=== PATIENT | female | born 1940 | race Caucasian/White ===

== ENCOUNTER 2023-09-28 13:10 | Outpatient (RCR) | payer MEDICARE, SELFPAY | END 2023-09-28 23:59 | disposition home or self-care (01) | LOC: RPT 13:10 | PROVIDERS: ATTENDING PHYSICIAN Orthopaedic Surgery; FAMILY PHYSICIAN Internal Medicine | DX: M54.51 Vertebrogenic low back pain (principal); Z73.6 Limitation of activities due to disability; G62.9 Polyneuropathy, unspecified; M62.81 Muscle weakness (generalized); M51.37 Other intervertebral disc degeneration, lumbosacral region | CPT/HCPCS: 97010; 97110; 97112; 97162; 97530 ==

== ENCOUNTER → 2023-10-16 09:55 | Outpatient (REF) | payer MEDICARE, SELFPAY | LOC: MRI 3T 09:55 | PROVIDERS: ATTENDING PHYSICIAN Nurse Practitioner; FAMILY PHYSICIAN Internal Medicine | DX: M54.50 Low back pain, unspecified (principal) | CPT/HCPCS: 73721 ==

== ENCOUNTER 2023-10-26 13:06 | Outpatient (RCR) | payer MEDICARE, SELFPAY | END 2023-10-26 23:59 | disposition home or self-care (01) | LOC: RPT 13:06 | PROVIDERS: ATTENDING PHYSICIAN Orthopaedic Surgery; FAMILY PHYSICIAN Internal Medicine | DX: M54.51 Vertebrogenic low back pain (principal); Z73.6 Limitation of activities due to disability; M62.81 Muscle weakness (generalized); G62.9 Polyneuropathy, unspecified; M51.37 Other intervertebral disc degeneration, lumbosacral region; R26.89 Other abnormalities of gait and mobility; G89.29 Other chronic pain | CPT/HCPCS: 97010; 97110; 97112; 97530 ==

== ENCOUNTER → 2023-11-08 14:51 | Outpatient (REF) | payer MEDICARE, SELFPAY | LOC: PAVMRI 14:51 | PROVIDERS: ATTENDING PHYSICIAN Pain Medicine Interventional Pain Medicine; FAMILY PHYSICIAN Internal Medicine; OTHER PHYSICIAN Nurse Practitioner | DX: M54.50 Low back pain, unspecified (principal) | CPT/HCPCS: 72148 ==

== ENCOUNTER → 2023-11-21 10:50 | Outpatient (REF) | payer MEDICARE, SELFPAY ==
[2023-11-21 12:06] LABS: % Basophils 0.8 % (0-2); % Eosinophils 2.8 % (0-6); % Immature Granulocytes 0.7 % (0-0.5); % Lymphocytes 20.9 % (20.5-51.1); % Monocytes 6.4 % (1.7-9.3); % Neutrophils 68.4 % (42.2-75.2); Absolute Basophils 0.1 10^3/uL (0-0.2); Absolute Eosinophils 0.2 10^3/uL (0-0.7); Absolute Immature Granulocytes 0.1 10^3/uL (0-0.05); Absolute Lymphocytes 1.8 10^3/uL (1.2-3.4); Absolute Monocytes 0.6 10^3/uL (0.1-0.6); Absolute Neutrophils 5.9 10^3/uL (1.4-6.5); Hematocrit 38.2 % (37.0-47.0); Hemoglobin 12.4 g/dL (12.0-16.0); Mean Corp Hgb Conc. 32.5 g/dL (33.0-37.0); Mean Corpuscular Hgb 26.4 pg (27.0-31.0); Mean Corpuscular Volume 81.3 fL (81.0-99.0); Mean Platelet Volume 9.6 fL (7.4-10.4); Nucleated Red Blood Cells % 0 %; Platelet Count 305 10^3/uL (130-400); Red Cell Dist. Width 15.9 % (11.5-14.5); White Blood Cell Count 8.6 10^3/uL (4.8-10.8)
[2023-11-21 13:03] LABS: ALT (SGPT) 13 U/L (0-35); AST (SGOT) 19 U/L (14-36); Albumin 3.6 g/dl (3.5-5.0); Alkaline Phosphatase 109 U/L (38-126); Blood Urea Nitrogen 19 mg/dl (7-17); Calcium 9.8 mg/dl (8.4-10.2); Carbon Dioxide 27 mmol/L (22-30); Chloride 101 mmol/L (98-107); Glucose 111 mg/dl (70-99); HDL Cholesterol 41 mg/dl; Potassium 4.1 mmol/L (3.5-5.1); Sodium 134 mmol/L (135-145); Total Bilirubin 0.9 mg/dl (0.2-1.3); Total Cholesterol 198 mg/dl (50-199); Total Protein 6.1 g/dl (6.3-8.2); eGFR > 60.00
[2023-11-21 13:08] LABS: Erythrocyte Sed Rate 30 mm/hour (0-20)
[2023-11-21 13:10] LABS: Triglyceride 454 mg/dl (10-149)
[2023-11-21 13:12] LABS: C-Reactive Protein < 5.00 mg/L (0.0-10.00)
[2023-11-21 13:29] LABS: Vitamin D, 25-OH*** 41.6 ng/mL (30-80)
[2023-11-21 13:41] LABS: LDL Cholesterol, Direct 60 mg/dl
[2023-11-23 07:23] LABS: ANA, IgG Reflex to HEp-2 None Detected (None Detected)
[2023-11-23 10:33] LABS: Rheumatoid Agglutinin Positive (<10 IU)
[2023-11-23 14:11] LABS: Rheumatoid Agg. Semi-quant 512 IU
== END ==
LOC: REG 10:50
PROVIDERS: ATTENDING PHYSICIAN Nurse Practitioner
DX: M54.50 Low back pain, unspecified (principal); M33.13 Other dermatomyositis without myopathy; M70.61 Trochanteric bursitis, right hip; M70.62 Trochanteric bursitis, left hip; R26.89 Other abnormalities of gait and mobility; E55.9 Vitamin D deficiency, unspecified; M19.90 Unspecified osteoarthritis, unspecified site; E78.5 Hyperlipidemia, unspecified; R53.82 Chronic fatigue, unspecified
CPT/HCPCS: 36415; 80053; 80061; 82306; 83721; 85025; 85652; 86038; 86140; 86430; 86431

== ENCOUNTER 2023-11-28 11:00 | Outpatient (RCR) | payer MEDICARE, SELFPAY | END 2023-11-28 23:59 | disposition home or self-care (01) | LOC: RPT 11:00 | PROVIDERS: ATTENDING PHYSICIAN Orthopaedic Surgery; FAMILY PHYSICIAN Internal Medicine | DX: M54.50 Low back pain, unspecified (principal); M54.51 Vertebrogenic low back pain (principal); Z73.6 Limitation of activities due to disability; M62.81 Muscle weakness (generalized); G62.9 Polyneuropathy, unspecified; M51.37 Other intervertebral disc degeneration, lumbosacral region; R26.89 Other abnormalities of gait and mobility; G89.29 Other chronic pain | CPT/HCPCS: 36415; 80053; 80061; 82306; 83721; 85025; 85652; 86038; 86140; 86430; 86431; 97010; 97110; 97140; 97530 ==

== ENCOUNTER → 2023-12-04 12:15 | Outpatient (REF) | payer MEDICARE, SELFPAY | LOC: RCS 12:15 | PROVIDERS: ATTENDING PHYSICIAN Pain Medicine Interventional Pain Medicine; FAMILY PHYSICIAN Internal Medicine | DX: Z01.818 Encounter for other preprocedural examination (principal) | CPT/HCPCS: 93005 ==

== ENCOUNTER 2023-12-28 12:05 | Outpatient (RCR) | payer MEDICARE, SELFPAY | END 2023-12-28 23:59 | disposition home or self-care (01) | LOC: RPT 12:05 | PROVIDERS: ATTENDING PHYSICIAN Orthopaedic Surgery; FAMILY PHYSICIAN Internal Medicine | DX: M54.51 Vertebrogenic low back pain (principal); Z73.6 Limitation of activities due to disability; M62.81 Muscle weakness (generalized); G62.9 Polyneuropathy, unspecified; M51.37 Other intervertebral disc degeneration, lumbosacral region; R26.89 Other abnormalities of gait and mobility; G89.29 Other chronic pain | CPT/HCPCS: 97010; 97110; 97140 ==

== ENCOUNTER 2024-01-12 14:22 | Outpatient (RCR) | payer MEDICARE, SELFPAY | END 2024-01-12 23:59 | disposition home or self-care (01) | LOC: RPT 14:22 | PROVIDERS: ATTENDING PHYSICIAN Orthopaedic Surgery; FAMILY PHYSICIAN Internal Medicine | DX: M54.51 Vertebrogenic low back pain (principal); Z73.6 Limitation of activities due to disability; M62.81 Muscle weakness (generalized); G62.9 Polyneuropathy, unspecified; M51.37 Other intervertebral disc degeneration, lumbosacral region; R26.89 Other abnormalities of gait and mobility; G89.29 Other chronic pain | CPT/HCPCS: 97010; 97110; 97140 ==

== ENCOUNTER 2024-01-16 12:10 | Emergency (ER) | payer MEDICARE, SELFPAY ==
[2024-01-16 12:13] VITALS: BP 118/65
--- NOTE | 2024-01-16 13:20 | ED.GENMED ---
History of Present Illness
General
Chief Complaint: Weakness
Time Seen by Provider: 01/16/24 13:15
Travel History
Have you had any contact with someone who has COVID-19?: No
Do you have any symptoms of coronavirus? Fever > 100 degrees, chills, cough, shortness of breath, sore throat, loss of taste or smell, muscle aches, or headache?: No
History of Present Illness
History of Present Illness:
83 yo female w/ hx of HTN and HLD presents to the Emergency Department for evaluation of generalized weakness and fatigue x 5-6 days. Developed URI symptoms and coughing 1 week ago, tested positive for COVID 19 on a home test yesterday. Has had
minor falls on two occasions this week and remained on the ground for several hours before being found by her daughter. Denies CP/SOB
Past History
Past History
ED Past Medical History: HTN, Hypercholesterolemia, Hypothyroidism and Other (IBS Coliti)
ED Past Surgical History: Appendectomy, Gynecological (hysterectomy), Orthopedic (discectomy) and Tonsilectomy
Social History
Tobacco: Non-smoker
Alcohol: Occasional
Drug: Marijuana
Personal:
Living: alone
Employment: Retired (RN)
Review of Systems
Review of Systems
Allergies reviewed?: Yes
All Other Systems: ROS reviewed and negative except as documented in HPI and ROS
Phy Exam
Physical Exam
Physical Exam:
GEN: Well appearing, NAD, WDWN
Eyes: PERRLA, EOMs intact, no scleral icterus
HENT: NCAT, oral mucosa moist
Lungs: CTAB, no wheezes, rales, rhonchi, normal chest wall excursion
Cardiac: RRR, no M/R/G, no peripheral edema. Radial pulses 2+ bilat
Abdomen: S, NT, ND, NABS, no masses or hepatosplenomegaly
Neuro: AO x 3
MSK: No gross deformity or ecchymosis. No edema. No digital clubbing
Skin: No rashes, petechiae. Normal color, no pallor or jaundice.
Psych: Calm, cooperative, proper hygiene
Course
Orders/Labs/Results
Orders:
Orders
01/16/24 13:28
0.9% Sodium Chloride 1000 ml [Nss] 1,000 ml IV BOLUS
01/16/24 13:29
CR Chest - 2 Views Urgent
Comment:
Reason For Exam: COVID+, weakness
01/16/24 13:34
Electrocardiogram (*1) Urgent
Reason for Study: Fatigue / Weakness
EKG- Treatment ONCE
01/16/24 14:07
Basic Metabolic Panel Urgent
Complete Blood Count/With Diff Urgent
01/16/24 15:32
0.9% Sodium Chloride 500 ml [Nss] 500 ml IV BOLUS
01/16/24 15:38
Urinalysis Reflex To Culture Urgent
Date Specimen was Collected: 01/16/24
Time Specimen was Collected: 15:35
01/16/24 15:50
Comprehensive Metabolic Panel Urgent
Creatine Phosphokinase Urgent
Comment: ADD ON
01/16/24 16:38
Add On- LAB Urgent
Tests Added?: CPK
Abnormal Lab Results
01/16/24 01/16/24
14:07 15:50
RBC 3.90 L 10^6/uL
(4.20-5.40)
Hgb 10.4 L g/dL
(12.0-16.0)
Hct 32.7 L %
(37.0-47.0)
MCH 26.7 L pg
(27.0-31.0)
MCHC 31.8 L g/dL
(33.0-37.0)
RDW 14.6 H %
(11.5-14.5)
Absolute Lymphs (auto) 0.8 L 10^3/uL
(1.2-3.4)
Neutrophils % 75.9 H %
(42.2-75.2)
Lymphocytes % 15.4 L %
(20.5-51.1)
Sodium 133 L mmol/L 132 L mmol/L
(135-145) (135-145)
BUN 28 H mg/dl 25 H mg/dl
(7-17) (7-17)
Glucose 112 H mg/dl 103 H mg/dl
(70-99) (70-99)
Total Protein 5.4 L g/dl
(6.3-8.2)
Albumin 3.0 L g/dl
(3.5-5.0)
01/16/24 14:07
01/16/24 15:50
Vital Signs
Initial and Last Documented VS:
Initial Vital Signs
Temp Pulse Resp BP Pulse Ox
98.8 F 85 20 118/65 95
01/16/24 12:13 01/16/24 12:13 01/16/24 12:13 01/16/24 12:13 01/16/24 12:13
Last Documented Vital Signs
Temp Pulse Resp BP Pulse Ox
98.8 F 72 18 118/65 95
01/16/24 12:13 01/16/24 14:15 01/16/24 15:00 01/16/24 12:13 01/16/24 12:13
MDM/Problems Addressed
MDM/Problems Addressed:
Pt's workup is reassuring. Likely fatigue in the setting of COVID 19. Pt given IV fluids with improvement in symptoms, CPK unremarkable. Discussed supportive care and return parameters
*Critical Care Note
Total Time (30-74mins, 75-104mins- exclusive of procedures): Not Applicable
ED Attending Note
-
Portions of this chart may have been created with voice recognition software.� Occasional wrong word or��sound alike� substitutions may have occurred due to the inherent limitations of voice recognition software.
Discharge Plan
Departure
Patient Disposition: Home (Routine Discharge)
Date of Disposition: 01/16/24
Time of Disposition: 16:39
Patient with high blood pressure during this ER visit?: No
Discharge Problem:
COVID-19, Generalized weakness
Instructions: Generalized Weakness (DC)
Prescriptions:
No Action
amlodipine 5 MG tablet
5 mg PO DAILY
levothyroxine 50 MCG tablet
50 mcg PO DAILY
esomeprazole magnesium [Nexium] 40 MG capsule,delayed release(DR/EC)
40 mg PO DAILY PRN (Reason: reflux)
dicyclomine 10 MG capsule
10 mg PO DAILY PRN (Reason: abd pain)
aspirin 81 MG tablet,delayed release (DR/EC)
81 mg PO DAILY
losartan-hydrochlorothiazide 1 EACH tablet
1 ea PO DAILY
levofloxacin 500 MG tablet
500 mg PO Q24H Qty: 6 0RF
Referrals:
Reg Segovia MD [Family Provider] -
Interventions
Interventions:
*Risk Screen - Suicide Last Done: 01/16/24 12:13
*General Assessment Last Done: 01/16/24 12:13
*Neglect/Abuse Screening Last Done: 01/16/24 12:13
ED- Fall Risk Assessment Last Done: 01/16/24 15:00
*ED COVID-19 Vaccine History Last Done: 01/16/24 15:00
*Nursing Disposition Last Done: 01/16/24 17:20
ED- Cardiac Assessment Last Done: 01/16/24 14:20
ED- Neurological Assessment Last Done: 01/16/24 14:20
ED- Pulmonary Assessment Last Done: 01/16/24 14:20
Discharge Date and Time
Discharge Date/Time: 01/16/24 18:06
Print Language: GIBRALTARIAN
[2024-01-16 13:58] VITALS: BMI 24.2
[2024-01-16] MEDS: NSS 1000 IV (14:06)
[2024-01-16 14:21] LABS: % Basophils 0.4 % (0-2); % Eosinophils 0.2 % (0-6); % Immature Granulocytes 0.4 % (0-0.5); % Lymphocytes 15.4 % (20.5-51.1); % Monocytes 7.7 % (1.7-9.3); % Neutrophils 75.9 % (42.2-75.2); Absolute Lymphocytes 0.8 10^3/uL (1.2-3.4); Absolute Monocytes 0.4 10^3/uL (0.1-0.6); Absolute Neutrophils 3.7 10^3/uL (1.4-6.5); Hematocrit 32.7 % (37.0-47.0); Hemoglobin 10.4 g/dL (12.0-16.0); Mean Corp Hgb Conc. 31.8 g/dL (33.0-37.0); Mean Corpuscular Hgb 26.7 pg (27.0-31.0); Mean Corpuscular Volume 83.8 fL (81.0-99.0); Mean Platelet Volume 9.5 fL (7.4-10.4); Nucleated Red Blood Cells % 0 %; Platelet Count 182 10^3/uL (130-400); Red Cell Dist. Width 14.6 % (11.5-14.5); White Blood Cell Count 4.9 10^3/uL (4.8-10.8)
[2024-01-16 14:48] LABS: Blood Urea Nitrogen 28 mg/dl (7-17); Calcium 8.5 mg/dl (8.4-10.2); Carbon Dioxide 29 mmol/L (22-30); Chloride 99 mmol/L (98-107); Estimated Creatinine Clearance 49 ml/min; Glucose 112 mg/dl (70-99); Sodium 133 mmol/L (135-145); eGFR > 60.00
[2024-01-16] MEDS: NSS 500 IV (15:45)
[2024-01-16 15:49] LABS: Urine Albumin Negative (Neg - Trace); Urine Bilirubin Negative (Negative); Urine Character Clear (Clear); Urine Color Yellow; Urine Glucose Negative (Negative); Urine Ketone Negative (Negative); Urine Leukocyte Negative (Negative); Urine Nitrite Negative (Negative); Urine Occult Blood Negative (Negative); Urine Specific Gravity 1.015 (<1.030); Urine Urobilinogen Negative (Neg - 1+)
[2024-01-16 16:23] LABS: ALT (SGPT) 13 U/L (0-35); AST (SGOT) 31 U/L (14-36); Alkaline Phosphatase 98 U/L (38-126); Blood Urea Nitrogen 25 mg/dl (7-17); Calcium 8.5 mg/dl (8.4-10.2); Carbon Dioxide 26 mmol/L (22-30); Chloride 101 mmol/L (98-107); Estimated Creatinine Clearance 57 ml/min; Glucose 103 mg/dl (70-99); Potassium 3.7 mmol/L (3.5-5.1); Sodium 132 mmol/L (135-145); Total Bilirubin 0.8 mg/dl (0.2-1.3); Total Protein 5.4 g/dl (6.3-8.2); eGFR > 60.00
[2024-01-16 18:45] LABS: Creatine Phosphokinase 92 U/L (30-135)
== END 2024-01-16 18:06 | disposition home or self-care (01) ==
LOC: EMR 12:10
PROVIDERS: Physician Assistant; EMERGENCY PHYSICIAN Emergency Medicine; FAMILY PHYSICIAN Internal Medicine
DX: U07.1 COVID-19 (principal); R53.1 Weakness; I10 Essential (primary) hypertension; E78.00 Pure hypercholesterolemia, unspecified
CPT/HCPCS: 99285; 96360; 71046; 80048; 80053; 81003; 82550; 85025; 93005

== ENCOUNTER 2024-01-31 20:58 | Emergency (ER) | payer MEDICARE, SELFPAY ==
[2024-01-31 21:00] VITALS: BP 204/94
--- NOTE | 2024-01-31 23:06 | ED.GENMED ---
History of Present Illness
General
Chief Complaint: Fall
Source: patient
Exam Limitations: none
Time Seen by Provider: 01/31/24 22:38
Nursing documentation reviewed up to this point in time: agreed with
History of Present Illness
History of Present Illness:
84-year-old female past medical history of hypertension hyperlipidemia, IBS presenting to the emergency department today after ground-level fall where she got tripped up over a log hit her left knee anteriorly has been able to ambulate but has had
worsening swelling discomfort over the past couple hours. Denies any chest pain shortness of breath numbness weakness or additional concern
Past History
Past History
ED Past Medical History: HTN, Hypercholesterolemia, Hypothyroidism and Other (IBS Coliti)
ED Past Surgical History: Appendectomy, Gynecological (hysterectomy), Orthopedic (discectomy) and Tonsilectomy
Social History
Tobacco: Non-smoker
Alcohol: Occasional
Drug: Marijuana
Personal:
Living: alone
Employment: Retired (RN)
Review of Systems
Review of Systems
Allergies reviewed?: Yes
All Other Systems: ROS reviewed and negative except as documented in HPI and ROS
Phy Exam
Physical Exam
Physical Exam:
GENERAL: Alert , in no apparent distress
EYE: pupils equal and reactive
NECK: Supple, no significant adenopathy.
ENT: o/p clr, mmm.
CARDIAC: Regular rate and rhythm .
LUNGS: Clear breath sounds bilaterally, no acute respiratory distress, no wheezes/rales/rhonchi
ABDOMEN: Soft, without focal tenderness, no r/g, no cvat
NEUROLOGICAL: Alert and oriented, no focal neuro deficits
SKIN: Warm and dry, skin intact.
MUSCULOSKELETAL: Swelling and some mild bruising to the anterior left knee mainly overlying the patella and the infrapatellar tendon. No significant pain on the tibial plateau good range of motion of the knee no redness or warmth good range of
motion of the ankle and hip. Can straight leg raise., well perfused.
PSYCH: Normal and appropriate interaction.
Course
Orders/Labs/Results
Orders:
Orders
01/31/24 21:03
Knee, Left 4 or More Views [CR Knee - Left 4 Or More View*] Urgent
Comment:
Reason For Exam: FALL
01/31/24 22:58
Vital Signs- Treatment ONCE
Frequency: Once
Knee Immobilizer Left-Treatmen ONCE
Vital Signs
Initial and Last Documented VS:
Initial Vital Signs
Temp Pulse Resp BP Pulse Ox
98.9 F 80 24 204/94 95
01/31/24 21:00 01/31/24 21:00 01/31/24 21:00 01/31/24 21:00 01/31/24 21:00
Last Documented Vital Signs
Temp Pulse Resp BP Pulse Ox
98.9 F 80 24 204/94 95
01/31/24 21:00 01/31/24 21:00 01/31/24 21:00 01/31/24 21:00 01/31/24 21:00
MDM/Problems Addressed
MDM/Problems Addressed:
84-year-old female presenting to the emergency department with left anterior knee pain after a ground-level fall hitting her left anterior knee here there is some bruising but good range of motion and strength no signs of infection no significant
breaks in the skin x-ray without signs of fracture. Patient with likely soft tissue injury plan for symptomatic outpatient follow-up as needed. Return precautions given.
*Critical Care Note
Total Time (30-74mins, 75-104mins- exclusive of procedures): Not Applicable
ED Attending Note
-
Portions of this chart may have been created with voice recognition software.� Occasional wrong word or��sound alike� substitutions may have occurred due to the inherent limitations of voice recognition software.
Discharge Plan
Departure
Patient Disposition: Home (Routine Discharge)
Date of Disposition: 01/31/24
Time of Disposition: 23:08
Patient with high blood pressure during this ER visit?: Yes
Condition: Good
Covid-19: Not Applicable
Discharge Problem:
Knee sprain
Instructions: Knee Sprain (DC), BLOOD PRESSURE
Prescriptions:
No Action
amlodipine 5 MG tablet
5 mg PO DAILY
levothyroxine 50 MCG tablet
50 mcg PO DAILY
esomeprazole magnesium [Nexium] 40 MG capsule,delayed release(DR/EC)
40 mg PO DAILY PRN (Reason: reflux)
dicyclomine 10 MG capsule
10 mg PO DAILY PRN (Reason: abd pain)
aspirin 81 MG tablet,delayed release (DR/EC)
81 mg PO DAILY
losartan-hydrochlorothiazide 1 EACH tablet
1 ea PO DAILY
levofloxacin 500 MG tablet
500 mg PO Q24H Qty: 6 0RF
Referrals:
Chris Degroot MD [Active] - Follow up in 10 days
Maira Aguirre MD [Family Provider] -
Activity Restrictions/Additional Instructions:
You came to the emergency department today for concerns of left-sided knee discomfort after a fall. X-ray without signs of fracture. Please rest ice compress and elevate and follow-up closely with orthopedics as needed. Return to the emergency
department any worsening, new or concerning symptoms.
Interventions
Interventions:
*Risk Screen - Suicide Last Done: 01/31/24 21:00
*Neglect/Abuse Screening Last Done: 01/31/24 21:00
ED- Fall Risk Assessment Last Done: 01/31/24 22:29
ED-Musculoskeletal Assessment Last Done: 01/31/24 22:29
ED- Neurological Assessment Last Done: 01/31/24 22:29
ED-Skin Assessment Last Done: 01/31/24 22:29
Discharge Date and Time
Print Language: SPANISH
[2024-02-01 00:27] VITALS: BP 113/76
== END 2024-02-01 00:33 | disposition home or self-care (01) ==
LOC: EMR 20:58
PROVIDERS: EMERGENCY PHYSICIAN Emergency Medicine; FAMILY PHYSICIAN Internal Medicine
DX: S83.92XA Sprain of unspecified site of left knee, initial encounter (principal); W18.30XA Fall on same level, unspecified, initial encounter; I10 Essential (primary) hypertension; E78.00 Pure hypercholesterolemia, unspecified; K58.9 Irritable bowel syndrome, unspecified
CPT/HCPCS: 99283; 73564

== ENCOUNTER → 2024-11-14 13:40 | Outpatient (REF) | payer MEDICARE, SELFPAY | LOC: RAD 13:40 | PROVIDERS: ATTENDING PHYSICIAN Internal Medicine | DX: S22.42XD Multiple fractures of ribs, left side, subsequent encounter for fracture with routine healing (principal) | CPT/HCPCS: 71111; 71120 ==

== ENCOUNTER → 2025-01-24 10:47 | Outpatient (REF) | payer MEDICARE, SELFPAY ==
[2025-01-24 11:16] LABS: % Basophils 1.5 % (0-2); % Eosinophils 3.2 % (0-6); % Immature Granulocytes 0.7 % (0-0.5); % Monocytes 6.1 % (1.7-9.3); % Neutrophils 64.5 % (42.2-75.2); Absolute Basophils 0.1 10^3/uL (0-0.2); Absolute Eosinophils 0.2 10^3/uL (0-0.7); Absolute Immature Granulocytes 0.1 10^3/uL (0-0.05); Absolute Lymphocytes 1.8 10^3/uL (1.2-3.4); Absolute Monocytes 0.5 10^3/uL (0.1-0.6); Absolute Neutrophils 4.9 10^3/uL (1.4-6.5); Hematocrit 37.8 % (37.0-47.0); Hemoglobin 12.1 g/dL (12.0-16.0); Mean Corpuscular Hgb 26.1 pg (27.0-31.0); Mean Corpuscular Volume 81.6 fL (81.0-99.0); Mean Platelet Volume 9.2 fL (7.4-10.4); Nucleated Red Blood Cells % 0 %; Platelet Count 306 10^3/uL (130-400); Red Blood Cell Count 4.63 10^6/uL (4.20-5.40); Red Cell Dist. Width 15.4 % (11.5-14.5); White Blood Cell Count 7.5 10^3/uL (4.8-10.8)
[2025-01-24 11:51] LABS: ALT (SGPT) 15 U/L (0-35); AST (SGOT) 19 U/L (14-36); Albumin 3.9 g/dl (3.5-5.0); Alkaline Phosphatase 164 U/L (38-126); Blood Urea Nitrogen 24 mg/dl (7-17); Calcium 9.6 mg/dl (8.4-10.2); Carbon Dioxide 24 mmol/L (22-30); Chloride 106 mmol/L (98-107); Glucose 118 mg/dl (70-99); HDL Cholesterol 40 mg/dl; Potassium 4.5 mmol/L (3.5-5.1); Sodium 137 mmol/L (135-145); Total Cholesterol 278 mg/dl (50-199); Total Protein 6.5 g/dl (6.3-8.2); eGFR > 60.00
[2025-01-24 11:55] LABS: Triglyceride 487 mg/dl (10-149)
[2025-01-24 12:03] LABS: Vitamin D, 25-OH*** 27.5 ng/mL (30-80)
[2025-01-24 12:21] LABS: LDL Cholesterol, Direct 51 mg/dl
== END ==
LOC: REG 10:47
PROVIDERS: ATTENDING PHYSICIAN Internal Medicine
DX: R42 Dizziness and giddiness (principal); E78.5 Hyperlipidemia, unspecified; R53.83 Other fatigue; E55.9 Vitamin D deficiency, unspecified
CPT/HCPCS: 36415; 80053; 80061; 82306; 83721; 84443; 85025

== ENCOUNTER 2025-03-13 17:39 | Observation (INO) | payer MEDICARE, SELFPAY ==
[2025-03-13] VITALS (10 sets, daily range): BP systolic 122–155; BP diastolic 48–76; PULSE 67; O2SAT 96; BMI 28.7; BMI 17.2
--- NOTE | 2025-03-13 11:03 | ED.GENMED ---
History of Present Illness
<Sherice Chase PA-C - Last Filed: 03/13/25 18:42>
General
Chief Complaint: Fall
Source: patient
Exam Limitations: none
Time Seen by Provider: 03/13/25 10:40
Nursing documentation reviewed up to this point in time: agreed with
History of Present Illness
History of Present Illness:
Patient is an 85-year-old female with history hypertension, hyperlipidemia who presents the emergency left hip pain after mechanical fall earlier this morning. Patient states she was walking out of her garage holding a few antique objects when she
lost her footing and fell landing on her left hip. She was lying on the ground proximately 30 minutes prior to her cleaning lady arriving. [facility]. She is unable to weight-bear or
move her hip without significant pain.
She does not believe she hit her head. She denies any neck pain, headache, back pain. No chest pain, abdominal pain, or shortness of breath.
Patient denies any numbness/tingling in left lower extremity. No pain in left knee or left ankle.
Patient is not on any blood thinners.
Past History
<Sherice Chase PA-C - Last Filed: 03/13/25 18:42>
Past History
ED Past Medical History: HTN, Hypercholesterolemia, Hypothyroidism and Other (IBS Coliti)
ED Past Surgical History: Appendectomy, Gynecological (hysterectomy), Orthopedic (discectomy) and Tonsilectomy
Social History
Tobacco: Non-smoker
Alcohol: Occasional
Drug: Marijuana
Personal:
Living: alone
Employment: Retired (RN)
Review of Systems
<Sherice Chase PA-C - Last Filed: 03/13/25 18:42>
Review of Systems
Allergies reviewed?: Yes
All Other Systems: ROS reviewed and negative except as documented in HPI and ROS
Phy Exam
<Sherice Chase PA-C - Last Filed: 03/13/25 18:42>
Physical Exam
Physical Exam:
Vitals: Patient's vital signs are stable. Afebrile
General: Patient is uncomfortable appearing due to pain
Skin: Warm and dry, no rashes or lesions
Head: Normocephalic, atraumatic
Eyes: Sclera nonicteric. Pupils equal round reactive to light bilaterally EOMs intact. No nystagmus.
Throat: Protecting airway
Neck: Normal ROM, no cervical spine tenderness, no meningismus
Cardiac: Regular rate and rhythm, no murmurs. No reproducible chest wall tenderness
Pulm: Normal respiratory effort, no wheezes, rales, rhonchi heard on exam
Abdomen: Abdomen soft and nontender. No ecchymoses
Extremities: Left lower extremity appears somewhat shortened and externally rotated. Focal tenderness over greater trochanter with some pain with internal rotation of left hip. Left lower extremity neurovascularly intact. No pain at left knee.
RLE and bilateral upper extremities atraumatic and nontender with full range of motion
Neuro: AAOx3. Grossly intact.
Psychiatric: Normal affect.
Course
<Sherice Chase PA-C - Last Filed: 03/13/25 18:42>
Orders/Labs/Results
Orders:
Orders
03/13/25 10:53
CT Head W/o Iv Contrast Urgent
Comment:
Reason For Exam: unwitnessed fall
Acetaminophen [Tylenol] 650 mg PO NOW STA
Hip, Left 2-3 Views [CR Hip - LT w/wo Pel 2-3 Vw*] Urgent
Comment:
Reason For Exam: fall, left hip pain
Include a pelvis x-ray?: Yes
03/13/25 11:05
Morphine Sulfate 4 mg IV NOW STA
03/13/25 11:40
Diphenhydramine [Benadryl] 50 mg .ROUTE .STK-MED ONE
03/13/25 11:42
Diphenhydramine [Benadryl] 25 mg IV NOW STA
03/13/25 12:49
CT Pelvis W/o Iv Contrast Urgent
Comment:
Reason For Exam: Fall, left hip pain
03/13/25 14:24
PT Consult [Pt Eval And Treat] Urgent
Activity Level: As Tolerated
03/13/25 15:10
Case Management Consult ONCE
Case Management Consult: Discharge Planning
03/13/25 16:35
Basic Metabolic Panel Urgent
Complete Blood Count/With Diff Urgent
03/13/25 17:23
Admit/Transfer Patient As Directed
Co-Sign Provider:
Level of Care: Observation services
Assign to:: Medical/Surgical
Physician / Group: Jermaine Ruiz
Diagnosis: ambulatory dysfunction, left greater trochanter fracture
PRN Pain Medication Management As Directed
May give lesser potent ordered pain med per pt: Yes
preference::
Protocol:: Medication orders for pain may be administered in a
manner that supports deferring to patient preference
when the pt is:
- Requesting an ordered lesser potent pain medication.
Least to most potent pain medications are defined
as: acetaminophen < NSAID < tramadol < opioids
(morphine, oxycodone, hydromorphone).
- Requesting a lesser dose of the same medication IF
ORDERED.
- Requesting a less intrusive route of administration
if both routes are prescribed by the provider (PO <
IV).
03/13/25 17:24
Code Status As Directed
Resuscitation Status: Full Code
Abnormal Lab Results
03/13/25
16:35
RBC 3.78 L 10^6/uL
(4.20-5.40)
Hgb 9.8 L g/dL
(12.0-16.0)
Hct 30.0 L %
(37.0-47.0)
MCV 79.4 L fL
(81.0-99.0)
MCH 25.9 L pg
(27.0-31.0)
MCHC 32.7 L g/dL
(33.0-37.0)
RDW 15.0 H %
(11.5-14.5)
Abs Immat Gran (auto) 0.1 H 10^3/uL
(0-0.05)
Absolute Neuts (auto) 7.3 H 10^3/uL
(1.4-6.5)
Lymphocytes % 17.0 L %
(20.5-51.1)
Chloride 109 H mmol/L
(98-107)
BUN 21 H mg/dl
(7-17)
Glucose 105 H mg/dl
(70-99)
03/13/25 16:35
03/13/25 16:35
Vital Signs
Initial and Last Documented VS:
Initial Vital Signs
Temp Pulse Resp BP Pulse Ox
98.1 F 75 12 151/76 97
03/13/25 10:44 03/13/25 10:44 03/13/25 10:44 03/13/25 10:44 03/13/25 10:44
Last Documented Vital Signs
Temp Pulse Resp BP Pulse Ox
98.1 F 74 14 129/48 96
03/13/25 10:44 03/13/25 18:15 03/13/25 18:15 03/13/25 18:00 03/13/25 16:30
<Jose Harding, DO - Last Filed: 03/13/25 11:06>
Orders/Labs/Results
Orders:
Orders
03/13/25 10:53
CT Head W/o Iv Contrast Urgent
Comment:
Reason For Exam: unwitnessed fall
Acetaminophen [Tylenol] 650 mg PO NOW STA
Hip, Left 2-3 Views [CR Hip - LT w/wo Pel 2-3 Vw*] Urgent
Comment:
Reason For Exam: fall, left hip pain
Include a pelvis x-ray?: Yes
03/13/25 11:05
Morphine Sulfate 4 mg IV NOW STA
03/13/25 11:40
Diphenhydramine [Benadryl] 50 mg .ROUTE .STK-MED ONE
03/13/25 11:42
Diphenhydramine [Benadryl] 25 mg IV NOW STA
03/13/25 12:49
CT Pelvis W/o Iv Contrast Urgent
Comment:
Reason For Exam: Fall, left hip pain
03/13/25 14:24
PT Consult [Pt Eval And Treat] Urgent
Activity Level: As Tolerated
03/13/25 15:10
Case Management Consult ONCE
Case Management Consult: Discharge Planning
03/13/25 16:35
Basic Metabolic Panel Urgent
Complete Blood Count/With Diff Urgent
03/13/25 17:23
Admit/Transfer Patient As Directed
Co-Sign Provider:
Level of Care: Observation services
Assign to:: Medical/Surgical
Physician / Group: Jermaine Ruiz
Diagnosis: ambulatory dysfunction, left greater trochanter fracture
PRN Pain Medication Management As Directed
May give lesser potent ordered pain med per pt: Yes
preference::
Protocol:: Medication orders for pain may be administered in a
manner that supports deferring to patient preference
when the pt is:
- Requesting an ordered lesser potent pain medication.
Least to most potent pain medications are defined
as: acetaminophen < NSAID < tramadol < opioids
(morphine, oxycodone, hydromorphone).
- Requesting a lesser dose of the same medication IF
ORDERED.
- Requesting a less intrusive route of administration
if both routes are prescribed by the provider (PO <
IV).
03/13/25 17:24
Code Status As Directed
Resuscitation Status: Full Code
Abnormal Lab Results
03/13/25
16:35
RBC 3.78 L 10^6/uL
(4.20-5.40)
Hgb 9.8 L g/dL
(12.0-16.0)
Hct 30.0 L %
(37.0-47.0)
MCV 79.4 L fL
(81.0-99.0)
MCH 25.9 L pg
(27.0-31.0)
MCHC 32.7 L g/dL
(33.0-37.0)
RDW 15.0 H %
(11.5-14.5)
Abs Immat Gran (auto) 0.1 H 10^3/uL
(0-0.05)
Absolute Neuts (auto) 7.3 H 10^3/uL
(1.4-6.5)
Lymphocytes % 17.0 L %
(20.5-51.1)
Chloride 109 H mmol/L
(98-107)
BUN 21 H mg/dl
(7-17)
Glucose 105 H mg/dl
(70-99)
03/13/25 16:35
03/13/25 16:35
Vital Signs
Initial and Last Documented VS:
Initial Vital Signs
Temp Pulse Resp BP Pulse Ox
98.1 F 75 12 151/76 97
03/13/25 10:44 03/13/25 10:44 03/13/25 10:44 03/13/25 10:44 03/13/25 10:44
Last Documented Vital Signs
Temp Pulse Resp BP Pulse Ox
98.1 F 74 14 129/48 96
03/13/25 10:44 03/13/25 18:15 03/13/25 18:15 03/13/25 18:00 03/13/25 16:30
<Sherice Chase PA-C - Last Filed: 03/13/25 18:42>
MDM/Problems Addressed
Differential Diagnosis Includes:
Not limited to: Hip fracture, hip dislocation, hip contusion, etc.
MDM/Problems Addressed:
85-year-old female presenting with left hip pain after mechanical fall today. Unable to weight-bear following fall given significant pain in left hip. No history of head trauma. Vitals and exam as above. Patient uncomfortable due to pain with
tenderness overlying left greater trochanter. Left lower extremity appears somewhat shortened and externally rotated however is neurovascularly intact. No evidence of other traumatic extremity injuries. No evidence of head, neck, or abdominal
trauma. Concern for possible hip fracture given mechanism and exam. ED plan: X-ray left hip/pelvis, head CT. Will treat pain and reassess.
Update: Head CT without acute findings. X-ray of left hip with subtle abnormality in area of left greater trochanter however no definitive fracture. Patient remains with significant pain, unable to weight-bear. Will obtain CT pelvis.
Update: CT pelvis shows fracture through left greater trochanter. Did review imaging with orthopedics who recommends weightbearing as tolerated. Patient does live alone and concerned that she will be unable to ambulate given degree of pain. PT
did come down to evaluate patient who recommends acute rehab placement. Discussed with case management who is unfortunately unable to place patient tonight. Will admit to hospitalist pending placement. Patient accepted to hospitalist service in
stable condition. Basic labs pending.
Chronic conditions affecting care:
Hypertension
Acute Exacerbation and/or Progression of Chronic Illness:
Acutely hypertensive
<Sherice Chase PA-C - Last Filed: 03/13/25 18:42>
*Radiology
Radiology exam reviewed: preliminary read by ED provider (CT pelvis reviewed by me which reveals fracture through left greater trochanter) and radiology read reviewed
*Pulse Oximetry
SaO2: 97
Oxygen Mode of Delivery: Room air
Patient hypoxic: no
*EKG
Interpreted by ED Provider?: NA
*Gas Dispenser Interpretation
Rate: Gas Dispenser- N/A
*Critical Care Note
Total Time (30-74mins, 75-104mins- exclusive of procedures): Not Applicable
<Sherice Chase PA-C - Last Filed: 03/13/25 18:42>
Patient Management
Discussion with other providers: Hospitalist and Specimen Preparation Assistant (Case discussed with orthopedics)
Escalation/DeEscalation of care consider admission/obs:
Admit pending acute rehab placement
ED Attending Note
<Sherice Chase PA-C - Last Filed: 03/13/25 18:42>
-
Portions of this chart may have been created with voice recognition software.� Occasional wrong word or��sound alike� substitutions may have occurred due to the inherent limitations of voice recognition software.
<Jose Harding DO - Last Filed: 03/13/25 11:06>
ED Attending Note
Patient seen and examined by attending physician: Yes
I performed the substantive portion of visit, reviewed & personally made and approve the management plan that is documented in note by myself or JAMIE.: Yes
ED Attending Note:
I have seen and evaluated the patient with a [id number] encounter. I have spoken to the advance practicer provider and involved in the medical history, the physical exam, medical decision making.
Evaluation and management service: agree unless noted differently below.
Results interpretation: agree unless noted differently below.
Focused HPI: 85-year-old female presenting with left hip pain after a fall. She denies numbness or tingling
Physical exam: Shortened left hip and mildly externally rotated but neurovascularly intact distal
Medical Decision Making: Will obtain CT head and left hip x-ray with clinical suspicion for hip fracture
Discharge Plan
Departure
Patient Disposition: Admit
Date of Disposition: 03/13/25
Time of Disposition: 16:32
Presentation/result/management discussed w/ accepting MD/DO: Hospitalist
Discharge Problem:
Fracture of greater trochanter of left femur, Ambulatory dysfunction
Interventions
Interventions:
*Risk Screen - Suicide Last Done: 03/13/25 10:50
*General Assessment Last Done: 03/13/25 10:50
*Neglect/Abuse Screening Last Done: 03/13/25 10:50
*ED- Fall Risk Assessment Last Done: 03/13/25 15:29
*ED COVID-19 Vaccine History Last Done: 03/13/25 10:49
ED-Musculoskeletal Assessment Last Done: 03/13/25 16:08
ED- Neurological Assessment Last Done: 03/13/25 16:08
ED-Skin Assessment Last Done: 03/13/25 16:08
[2025-03-13] MEDS: TYLENOL 650 MG PO (11:31)
[2025-03-13] MEDS: MORPHINE SULFATE 4 MG IV (11:32)
[2025-03-13] MEDS: BENADRYL 25 MG IV (11:42)
--- NOTE | 2025-03-13 16:43 | HPS.HSE ---
Family Physician
-
Family Physician: Maira Aguirre
Chief Complaint
-
left hip pain
History of Present Illness
Patient is a 85-year-old female with past medical history significant for hypertension, hyperlipidemia, hypothyroidism and GERD who presented to [facility] ED for evaluation of left hip pain s/p mechanical fall. Patient reports carrying some items out of
garage this morning was not paying close enough attention and lost her balance and fell, landing more on her left side injuring her hip and left elbow. Patient reports laying on ground for approximately 30 minutes when her cleaner assistant arrived. EMS was
called for transport as patient was unable to get up with or without assistance and was complaining for significant pain to left hip. Patient denies hitting head. Patient denies any recent falls, headache, abdominal pain, fever, chills, cough,
shortness of breath, chest pain, nausea, vomiting, constipation, diarrhea or urinary symptoms.
Medical History
Past Medical History
Past Medical History: Reports Other
Additional Past Medical History:
hypertension
hyperlipidemia
hypothyroidism
GERD
diverticulosis
Past Surgical History: Reports Other
Additional Past Surgical History:
appendectomy
tonsillectomy
LALA
Right L4 and L5 TF EYAL 11/14/23
B/L S1 TFESI WITH SED 12/07/23
MILD - Spinal Stenosis 03/2024
Social History
Tobacco: Non-smoker
Alcohol: None
Drug: None
Living: Alone
Employment: Retired
Family History
Family History: Other (Mother: CVA)
Allergies / Home Medications
Allergies reflects when Allergies were last updated in [facility].
Home Medications with original date entered in [facility]
Allergy/Medication List:
Allergies
Allergy/AdvReac Type Severity Reaction Status Date / Time
Penicillins Allergy Hives Verified 01/31/24 21:03
Sulfa (Sulfonamide Allergy Hives Verified 01/31/24 21:03
Antibiotics)
Home Medications
amlodipine 5 mg tablet 5 mg PO QPM 12/28/15
levothyroxine 50 mcg tablet 50 mcg PO HS 12/28/15
atorvastatin 40 mg tablet (Lipitor) 40 mg PO QPM 03/13/25
coQ10 (ubiquinol) 100 mg capsule 100 mg PO QPM 03/13/25
hydrochlorothiazide 12.5 mg capsule 12.5 mg PO QPM 03/13/25
olmesartan 20 mg tablet (Benicar) 20 mg PO QPM 03/13/25
therapeutic multivitamin 1 tab PO QPM 03/13/25
vitamin B complex 1 tab PO QPM 03/13/25
Review of Systems
-
History Source: Patient
Constitutional: Reports No Symptoms
EENT: Reports No Symptoms
Respiratory: Reports No Symptoms
Cardiac: Reports No Symptoms
Abdomen/GI: Reports No Symptoms
: Reports No Symptoms
Musculoskeletal: Reports Joint Pain (left hip pain )
Skin: Reports No Symptoms
Neurological: Reports No Symptoms
Endocrine: Reports No Symptoms
Hematologic/Lymphatic: Reports No Symptoms
Psych: Reports No Symptoms
Physical Exam
Vital Signs
Vital Signs
Temp Pulse Resp BP Pulse Ox
98.1 F 64 13 139/52 97
03/13/25 10:44 03/13/25 16:15 03/13/25 16:15 03/13/25 16:00 03/13/25 16:15
Physical Exam
General: Well Developed, Well Nourished, No Apparent Distress, Comfortable, Conversant and Obese
HEENT: NormoCephalic, Moist mucous membranes and Atraumatic
Respiratory: Clear and Non Labored Respirations
Cardiac: S1/S2 and Regular Rhythm; No Murmur, Rub or Gallop
GI: Soft, Non Tender, Non Distended and Normal Bowel Sounds; No Organomegaly
Rectal: Deferred by Provider
Genito-urinary: Deferred by me
Musculoskeletal: No Clubbing, No Cyanosis and Other (Left hip tenderness with palpation, no bruising or edema, ROM decreased r/t discomfort per patient )
Skin: Warm and IV/Catheter Site
Neuro: Awake, AO x 3 and Nonfocal/grossly intact
Psych: Calm and Intact Judgment/Insight
Data Reviewed
-
CT Scan: Report Reviewed by me (Head: No acute intracranial abnormalities. Findings compatible with diffuse cortical atrophy with nonspecific white matter changes as described above.)
Lab Data: Labs Reviewed by me
Impression/Plan
-
IMPRESSION/PLAN:
#left hip pain s/p mechanical fall
#left greater trochanter fracture
Lt Hip X-ray: There is irregularity and a linear lucency involving the left greater trochanter which suggests a fracture
Pelvis CT: There is a fracture through the greater trochanter on the left
Findings suggest mild diverticulitis involving the sigmoid colon. Are there symptoms concerning for this?
Head CT: No acute intracranial abnormalities.
Findings compatible with diffuse cortical atrophy with nonspecific white matter changes as described above.
- Admit to med/surg
- Consult Case Management
- Consult PT/OT
- Consult ortho
- pain regimen
#hypertension
- continue amlodipine, HCTZ and olmesartan
#hyperlipidemia
- continue atorvastatin
#hypothyroidism
- continue levothyroxine
#GERD
#diverticulosis
Code status: Full code
DVT prophylaxis: SCDs
--- NOTE | 2025-03-13 16:46 | CM ---
CM reviewed chart and met with pt bedside in ED. Pt lives alone, 2 story home, [address], has first floor setup
Independent in ADLs, personal care and ambulation at baseline. No assistive devices. Still driving.
No hx VN or SNF.
Discussed SNF with pt, she asked for referrals to be sent to facilities near [place] which is where her sister lives.
PCP: Maira Aguirre
Pharmacy: [facility]
SNF referrals entered in [facility], CM will continue to follow.
[2025-03-13 17:01] LABS: Hematocrit 30.0 % (37.0-47.0); Hemoglobin 9.8 g/dL (12.0-16.0); Mean Corp Hgb Conc. 32.7 g/dL (33.0-37.0); Mean Corpuscular Volume 79.4 fL (81.0-99.0); Nucleated Red Blood Cells % 0 %; Platelet Count 241 10^3/uL (130-400); Red Cell Dist. Width 15.0 % (11.5-14.5)
[2025-03-13 17:15] LABS: Blood Urea Nitrogen 21 mg/dl (7-17); Calcium 8.7 mg/dl (8.4-10.2); Carbon Dioxide 25 mmol/L (22-30); Chloride 109 mmol/L (98-107); Estimated Creatinine Clearance 64 ml/min; Glucose 105 mg/dl (70-99); Sodium 135 mmol/L (135-145); eGFR > 60.00
--- NOTE | 2025-03-13 18:10 | W.PN.UPDATE ---
Update Note
Progress Note Update
This note serves as an addendum to the H&P by test puller JAMIE�
Padmini Samuels�
HPI�
85F HX HTN , HLD, hypothyroidism and GERD seen at ER:
- for evaluation of left hip pain s/p mechanical fall
- reports carrying some items out of garage , lost balance and fell, landing on her left side injuring her hip and left elbow
- reports laying on ground for approximately 30 minutes when her shoe cleaner arrived.
- [facility] for significant pain to left hip.
ROS:
denies hitting head. Patient denies any recent falls, headache, abdominal pain, fever, chills, cough, shortness of breath, chest pain, nausea, vomiting, constipation, diarrhea or urinary symptoms.
Relevant VS:
Temp Pulse Resp BP Pulse Ox
98.1 F 83 16 145/76 96
03/13/25 10:44 03/13/25 17:00 03/13/25 17:00 03/13/25 17:00 03/13/25 16:30
Relevant data
03/13/25
16:35
RBC 3.78 L
Hgb 9.8 L
Hct 30.0 L
MCV 79.4 L
MCH 25.9 L
MCHC 32.7 L
RDW 15.0 H
Abs Immat Gran (auto) 0.1 H
Absolute Neuts (auto) 7.3 H
Lymphocytes % 17.0 L
Chloride 109 H
BUN 21 H
Glucose 105 H
PE
Gen: Obese
HEENT: atraumatic
Neck: supple
Lungs: CTA
Cor: RRR S1S2
Abdomen:�soft
SAFETY PHYSICIAN: NFND
MS:Left hip tenderness with palpation, no bruising or edema, ROM decreased r/t discomfort per patient )
Psych:Calm and Intact Judgment/Insight
Lt Hip X-ray: There is irregularity and a linear lucency involving the left greater trochanter which suggests a fracture
Pelvis CT: There is a fracture through the greater trochanter on the left
Findings suggest mild diverticulitis involving the sigmoid colon. Are there symptoms concerning for this?
Head CT: No acute intracranial abnormalities.
Findings compatible with diffuse cortical atrophy with nonspecific white matter changes as described above.
Last hospitalist admission:
ASSESSMENT & PLAN
Lt greater trochanter Fx wityh acute left hip Fx pain s/p mechanical fall
- Fx set protocol for pain control
- PT/OT and CRM consult for placement
- Ortho consulted and suggest WBAT, Non surgical Fx
Essential HTN
- cont. Amlodipine, HCTZ and olmesartan
Dyslipdemia
- continue atorvastatin
Hypothyroidism
- continue levothyroxine
HX GERD
Diverticulosis
DVT Px: LMWH
Full code
OBS MS
--- NOTE | 2025-03-13 22:00 | PTCARENOTE ---
Pt arrived to room 419-01. Pt transferred from stretcher to bed. Pt AAOx3, VSS. Pt oriented to room, call crane placed within reach. Bed alarm intact.
[2025-03-13] MEDS: LIPITOR 40 MG PO (22:31)
[2025-03-13] MEDS: ORETIC 12.5 MG PO (22:31)
[2025-03-13] MEDS: B COMPLEX w/VITAMIN C 1 CAPLET PO (22:31)
[2025-03-13] MEDS: BENICAR 20 MG PO (22:31)
[2025-03-13] MEDS: ROXICODONE 5 MG PO (22:32)
[2025-03-13] MEDS: THERAGRAN 1 TABLET PO (22:33)
[2025-03-13] MEDS: NORVASC 5 MG PO (22:33)
[2025-03-14] MEDS: ROXICODONE 5 MG PO ×3 (03:33→16:21)
[2025-03-14 06:19] LABS: Hematocrit 29.8 % (37.0-47.0); Hemoglobin 9.5 g/dL (12.0-16.0); Mean Corp Hgb Conc. 31.9 g/dL (33.0-37.0); Mean Corpuscular Volume 81.4 fL (81.0-99.0); Platelet Count 254 10^3/uL (130-400); Red Cell Dist. Width 15.1 % (11.5-14.5)
[2025-03-14] MEDS: SYNTHROID 50 MCG PO (06:29)
--- NOTE | 2025-03-14 07:09 | W.PN.HOSP.TC ---
Today's Communication/Plan
-
Discharge to SNF today
Assessment / Plan
Assessment / Plan
Physical Exam
General: Not in acute distress
HEENT: Normocephalic, Moist mucous membranes
Respiratory: Clear to Auscultation Bilaterally
Cardiac: S1/S2 and Regular Rhythm
GI: Soft, Non Tender, Non Distended and Normal Bowel Sounds
Musculoskeletal: No Cyanosis and Other (Left hip tenderness with palpation, no bruising or edema, ROM decreased r/t discomfort per patient )
Skin: Warm. Dry.
Neuro: Awake, AO x 3 and Nonfocal/grossly intact
Psych: Calm and Intact Judgment/Insight
Assessment/Plan
85-year-old female with past medical history significant for hypertension, hyperlipidemia, hypothyroidism and GERD who presented to [facility] ED for evaluation of left hip pain s/p mechanical fall. Patient reported carrying some items out of garage, was
not paying close enough attention and lost her balance and fell, landing more on her left side injuring her hip and left elbow. Patient reported laying on the ground for approximately 30 minutes when her dry cleaner helper arrived. EMS was called for transport
as patient was unable to get up with or without assistance and was complaining for significant pain to left hip. Patient denied hitting head. Patient denied any recent falls, headache, abdominal pain, fever, chills, cough, shortness of breath, chest
pain, nausea, vomiting, constipation, diarrhea or urinary symptoms.
#Left hip pain s/p mechanical fall
#Left isolated greater trochanteric femur fracture
Lt Hip X-ray: There is irregularity and a linear lucency involving the left greater trochanter which suggests a fracture
Pelvis CT: There is a fracture through the greater trochanter on the left
Findings suggest mild diverticulitis involving the sigmoid colon. Are there symptoms concerning for this?
Head CT: No acute intracranial abnormalities.
Findings compatible with diffuse cortical atrophy with nonspecific white matter changes as described above.
- Weightbearing as tolerated, limited hip abduction, PT/OT, Assist devices as indicated. Patient needs SNF placement.
- Outpatient follow-up 4 weeks from date of injury for repeat imaging. with John Millan PA-C
- Consult Case Management
- Consult PT/OT
- Consult ortho
- pain regimen
#hypertension
- continue amlodipine, HCTZ and olmesartan
#hyperlipidemia
- continue atorvastatin
#hypothyroidism
- continue levothyroxine
#GERD
#diverticulosis
Code status: Full code
DVT prophylaxis: SCDs
Patient needs Alf Facility placement
More than 30 minutes spent in discharge including
Final examination of the patient
Summarizing hospital stay
Instructions for continuing care to all relevant caregivers
Preparation of discharge records, prescriptions, and referral forms
Total time spent (in minutes): 37
Anticipated Discharge: Today
Subjective/Interval History
-
Date of Service: March 14, 2025
Patient was seen and examined. She reported some pain from her fracture but otherwise denied any other symptoms or complaints.
Objective Data
-
Labs:
Laboratory Results
03/14/25
06:06
WBC 8.3
Hgb 9.5 L
Hct 29.8 L
Plt Count 254
Vital Signs:
Vital Signs
Temp Pulse Resp BP Pulse Ox
98.4 F 76 14 122/55 94
03/13/25 23:55 03/13/25 23:55 03/13/25 23:55 03/13/25 23:55 03/13/25 23:55
[2025-03-14 08:05] VITALS: BP 109/53
--- NOTE | 2025-03-14 08:29 | W.PN.UPDATE ---
Update Note
Progress Note Update
Full consult to follow
85-year-old female with isolated greater trochanteric femur fracture.
- Weightbearing as tolerated, limited hip abduction.
- PT/OT/discharge planning. Assist devices as indicated
- Outpatient follow-up 4 weeks from date of injury for repeat imaging.
--- NOTE | 2025-03-14 09:18 | CON.ORTHO ---
Consultation
-
Date/Time Consultation Requested: 03/13/25 2130
Date/Time Consultation Performed: 03/14/25 0800
Requesting Provider: KADE Samuels
Performing Provider: SEJAL Millan, Dr. Alba Morrison
Reason for Consultation: left hip fracture
Consultation - Orthopedics
History
85-year-old female admitted to [facility] after a fall mechanical in nature and impact of her left hip. She reports discomfort to the lateral aspect of her hip and denies any deep groin pain. She reports an abrasion of her left elbow but
denies any other injury sustained. Typically a community ambulator at baseline. Reports injury was closed and denies any paresthesias of her left lower extremity
Allergies / Home Medications
Past Medical History: Reports Other
Additional Past Medical History:
hypertension
hyperlipidemia
hypothyroidism
GERD
diverticulosis
Past Surgical History: Reports Other
Additional Past Surgical History:
appendectomy
tonsillectomy
LALA
Right L4 and L5 TF EYAL 11/14/23
B/L S1 TFESI WITH SED 12/07/23
MILD - Spinal Stenosis 03/2024
Social History
Tobacco: Non-smoker
Alcohol: None
Drug: None
Living: Alone
Employment: Retired
Family History
Family History: Other (Mother: CVA)
Allergy/AdvReac Type Severity Reaction Status Date / Time
Penicillins Allergy Hives Verified 01/31/24 21:03
Sulfa (Sulfonamide Allergy Hives Verified 01/31/24 21:03
Antibiotics)
�Medication �Instructions �Recorded
amlodipine 5 mg tablet 5 mg PO QPM 12/28/15
levothyroxine 50 mcg tablet 50 mcg PO HS 12/28/15
atorvastatin 40 mg tablet (Lipitor) 40 mg PO QPM 03/13/25
coQ10 (ubiquinol) 100 mg capsule 100 mg PO QPM 03/13/25
hydrochlorothiazide 12.5 mg capsule 12.5 mg PO QPM 03/13/25
olmesartan 20 mg tablet (Benicar) 20 mg PO QPM 03/13/25
therapeutic multivitamin 1 tab PO QPM 03/13/25
vitamin B complex 1 tab PO QPM 03/13/25
Vital Signs / Lab Results
Temp Pulse Resp BP Pulse Ox
97.6 F 66 16 109/53 96
03/14/25 08:05 03/14/25 08:05 03/14/25 08:05 03/14/25 08:05 03/14/25 08:05
IMAGING: X-rays and CT scan taken of the left hip show nondisplaced isolated greater trochanteric femur fracture with entry and exit point. Arthrosis of the lumbar spine. Minimal arthrosis of the femoral acetabular joint
PHYSICAL EXAM: Focused examination of the left lower extremity the level hip shows skin is intact no erythema edema or ecchymosis. She has point tenderness about the greater trochanter. No significant deep inguinal pain reported nontender in this
area and no significant deep inguinal pain with logroll
03/14/25 06:06
03/13/25 16:35
Assessment / Plan
85-year-old female admitted to outside hospital for a fall and isolated right intertrochanteric femur fracture with no evidence of complete extension with clear entry and exit point on CT scan. Low concern for occult intertrochanteric femur
fracture given CT findings. Recommend weightbearing as tolerated with assist device of walker with physical therapy and OT consultation. DVT prophylaxis per primary. Recommend outpatient follow-up in 4 weeks for repeat clinical exam and x-ray,
sooner for questions or concerns. Orthopedic surgical follow peripherally please reengage further questions or concerns
[2025-03-14 11:16] VITALS: BP 145/65; BP 96/55
--- NOTE | 2025-03-14 13:26 | CM ---
Addendum entered by Dahiana Johnston 03/14/25 13:49:
Denise at [facility] updated, patient will need waiver authorization sent to [facility] prior to acceptance. Covid test ordered. Patient scheduled for 5:30 p.m. ambulance transport.
Plan; discharge to [facility] through waiver program, 5:30 p.m. ambulance transport
[facility]
Report: [phone]

Original Note:
CM reviewed chart, patient seen bedside with family, discussed patient is admitted observation status, GRAY form verbally reviewed, provided with copy, placed in chart. Patient is part of [facility] waiver program, prefers facilities closest to [place]
so sister can visit, referral to [facility], able to offer bed.
--- NOTE | 2025-03-14 14:47 | W.DCSUMMARY ---
Discharge Summary
Discharge Data
Date of Admission: 03/13/25
Date of Discharge: 03/17/25
Total time spent discharging patient (in min): 37
-
Pending Results: No
Hospital Course
85-year-old female with past medical history significant for hypertension, hyperlipidemia, hypothyroidism and GERD who presented to [facility] ED for evaluation of left hip pain status post mechanical fall. Patient was found to have a left hip fracture.
Other than pain in her left hip, she denied any other symptoms; she also denied abdominal pain or fever. She did not have leukocytosis. Orthopedics was consulted and they noted patient's isolated greater trochanteric femur fracture, and they
recommended weightbearing as tolerated, limited hip abduction, physical therapy, assist devices as indicated and outpatient follow-up 4 weeks from date of injury for repeat imaging. Patient was stable for discharge to custodial facility.
Discharge Plan
-
Patient Disposition: [facility]/SNF
Discharge Diagnosis/Procedures: #Left hip pain status post mechanical fall
#Left isolated greater trochanteric femur fracture
#Hypertension
#Hyperlipidemia
#Hypothyroidism
#GERD
#Diverticulosis
CT Pelvis without Intravenous Contrast (as per radiologist's report):
'TECHNIQUE: A CT examination of the pelvis was performed without the use of intravenous contrast. Automated dose reduction technology was utilized
COMPARISON: None.
FINDINGS:
There is an undisplaced fracture through the left greater trochanter [sagittal image 62, axial image 38 through 43]. The femoral head is aligned with the acetabulum. There are severe degenerative changes in the visualized portion of the lower lumbar
spine.
There is mild inflammation around the sigmoid colon. [-] There are colonic diverticula. There is no free fluid in the pelvis. There is no evidence of free air, or abscess. 1There are no fluid collections. The bladder is unremarkable.
IMPRESSION:
There is a fracture through the greater trochanter on the left
Findings suggest mild diverticulitis involving the sigmoid colon. Are there symptoms concerning for this?'
Condition: Good
Diet: Other diet
Activity: Other activity
Additional Activity: Weightbearing as tolerated, limited hip abduction
Driving Restrictions: No driving
Blood Work: Check CBC, BMP and Magnesium in 1 to 2 days
Other Services: PT
Activity Restrictions/Additional Instructions:
Weightbearing as tolerated, limited hip abduction, PT/OT, Assist devices as indicated. Patient needs SNF placement.
Outpatient follow-up 4 weeks from date of injury for repeat imaging with John Millan PA-C
Referrals:
John Millan PA-C [Specified Professional Personl, Orthopedics] - in three to four weeks
Maira Aguirre MD [Family Provider, Internal Medicine] - in less than 1 week
Referral Note: Hospitalization Follow-Up
Tana Carney MD [Active, Gastroenterology] - in one to two weeks
Referral Note: Incidental finding of inflammation around sigmoid colon with nearby diverticula on hospital CT imaging, needs close follow-up following hospital discharge on 03/14/25
Prescriptions:
New
oxycodone 5 mg Tablet
5 mg PO Q6HPRN PRN (Reason: moderate pain) Qty: 10 0RF
Continued
amlodipine 5 MG tablet
5 mg PO QPM
levothyroxine 50 MCG tablet
50 mcg PO HS
atorvastatin [Lipitor] 40 mg Tablet
40 mg PO QPM
therapeutic multivitamin Tablet
1 tab PO QPM
hydrochlorothiazide 12.5 mg Capsule
12.5 mg PO QPM
vitamin B complex Tablet
1 tab PO QPM
olmesartan [Benicar] 20 mg Tablet
20 mg PO QPM
coQ10 (ubiquinol) 100 mg Capsule
100 mg PO QPM
Discharge Orders:
Discharge Patient (As Directed); Ordered 03/14/25
Ordered By: Sahil Moralez
Discharge Date and Time
Discharge Date/Time: 03/14/25 18:04
Print Language: SERBIAN
[2025-03-14 15:02] LABS: COVID-19 Antigen Negative (Negative)
[2025-03-14 15:35] VITALS: BP 122/55
== END 2025-03-14 18:04 ==
LOC: 4 WEST ACU 17:39
PROVIDERS: Nurse Practitioner Family; Physician Assistant; ADMITTING PHYSICIAN Internal Medicine; ATTENDING PHYSICIAN Hospitalist; CONSULT PHYSICIAN Orthopaedic Surgery; EMERGENCY PHYSICIAN Student in an Organized Health Care Education/Training Program; FAMILY PHYSICIAN Internal Medicine
DX: S72.112A Displaced fracture of greater trochanter of left femur, initial encounter for closed fracture (principal); W01.0XXA Fall on same level from slipping, tripping and stumbling without subsequent striking against object, initial encounter; I10 Essential (primary) hypertension; E03.9 Hypothyroidism, unspecified; K21.9 Gastro-esophageal reflux disease without esophagitis; K57.90 Diverticulosis of intestine, part unspecified, without perforation or abscess without bleeding; S50.312A Abrasion of left elbow, initial encounter; E78.00 Pure hypercholesterolemia, unspecified; Z11.52 Encounter for screening for COVID-19; Z79.899 Other long term (current) drug therapy
CPT/HCPCS: 70450; 72192; 73502; 80048; 85025; 85027; 87811; 93005; 96374; 96375; 97530; 99285; G0378

== ENCOUNTER 2025-06-27 07:07 | Outpatient (RCR) | payer MEDICARE, SELFPAY | END 2025-06-27 23:59 | disposition home or self-care (01) | LOC: RPT 07:07 | PROVIDERS: ATTENDING PHYSICIAN Student in an Organized Health Care Education/Training Program; FAMILY PHYSICIAN Internal Medicine | DX: S72.115D Nondisplaced fracture of greater trochanter of left femur, subsequent encounter for closed fracture with routine healing (principal); Z73.6 Limitation of activities due to disability; M62.81 Muscle weakness (generalized); G62.9 Polyneuropathy, unspecified; W18.39XD Other fall on same level, subsequent encounter | CPT/HCPCS: 97110; 97162; 97530 ==

== ENCOUNTER 2025-07-18 08:34 | Outpatient (RCR) | payer MEDICARE, SELFPAY | END 2025-07-28 23:59 | disposition home or self-care (01) | LOC: RPT 08:34 | PROVIDERS: ATTENDING PHYSICIAN Student in an Organized Health Care Education/Training Program; FAMILY PHYSICIAN Internal Medicine | DX: S72.115D Nondisplaced fracture of greater trochanter of left femur, subsequent encounter for closed fracture with routine healing (principal); Z73.6 Limitation of activities due to disability; M62.81 Muscle weakness (generalized); G62.9 Polyneuropathy, unspecified; W18.39XD Other fall on same level, subsequent encounter | CPT/HCPCS: 97110; 97112; 97530 ==